=== PATIENT | female | born 1960 | race Asian ===

== ENCOUNTER 2016-10-29 10:57 | Emergency (ER) | payer BC ==
[~2016-10-29] VITALS: Ht 172.7 cm; Wt 87.5 kg
[2016-10-29 10:58] VITALS: Ht 172.7 cm; Wt 87.5 kg
[2016-10-29 12:28] LABS: BASOPHIL # 0.1 10^3/ul (0.0-0.1); BASOPHILS % 0.5 % (0.0-2.0); EOSINOPHILS % 0.2 % (0.0-7.0); HEMATOCRIT 40.4 % (37.0-47.0); HEMOGLOBIN 13.4 g/dl (12.0-16.0); LYMPHOCYTES # 2.2 10^3/ul (0.8-2.9); LYMPHOCYTES % 17.2 % (15.0-51.0); MEAN CORPUSCULAR HGB CONC 33.2 g/dl (32.0-37.0); MEAN CORPUSCULAR VOLUME 93.4 fl (82.0-101.0); MEAN PLATELET VOLUME 8.6 fl (7.4-10.4); MONOCYTE # 0.8 10^3/ul (0.3-0.9); MONOCYTES % 6.7 % (0.0-11.0); NEUTROPHIL # 9.5 10^3/ul (1.6-7.5); NEUTROPHILS % 75.4 % (39.0-77.0); PLATELET COUNT 250 10^3/UL (140-440); RED BLOOD COUNT 4.32 10^6/ul (4.20-5.40); UNCORRECTED WBC 12.6 10^3/ul (4.8-10.8); WHITE BLOOD COUNT 12.6 10^3/ul (4.8-10.8)
--- NOTE | 2016-10-29 12:29 | RADRPT ---
PROCEDURE: XR left shoulder. CLINICAL INDICATION: shoulder pain, limited range of motion TECHNIQUE: AP, Internal and external rotation views of the left shoulder were performed. COMPARISON: None. FINDINGS: There is normal osseous mineralization and alignment. No acute fracture is identified. There is a sclerotic lesion in the left humeral head which may be sales representative public utilities of a bone [place]. There are normal joints without evidence of arthritis or dislocation. The soft tissues are unremarkable. IMPRESSION: 1. No acute bony abnormality 2. Sclerotic lesion in the left humeral head. Additional imaging evaluation with a CT can be perfo rmed for further evaluation. .Faby Hugo MD, MD Date Time Electronically viewed and signed by .Faby Hugo MD, on 10/29/2016 12:28 .Julia/
[2016-10-29 12:31] LABS: CONDITION 1
[2016-10-29 12:34] LABS: ALBUMIN 4.3 g/dl (3.3-4.9); POTASSIUM 4.3 mmol/L (3.5-5.1)
[2016-10-29 12:36] LABS: ALBUMIN/GLOBULIN RATIO 1.04; BILIRUBIN,INDIRECT 0.2 mg/dl (0-1.1); BILIRUBIN,TOTAL 0.2 mg/dl (0.2-1.3); CREATININE 0.57 mg/dl (0.44-1.00); TOTAL PROTEIN 8.4 g/dl (6.1-8.1)
[2016-10-29 12:37] LABS: CALCIUM 9.4 mg/dl (8.4-10.2)
--- NOTE | 2016-10-29 12:59 | ERD ---
ER Documentation Chief Complaint Date/Time DATE: 10/29/16 TIME: 12:50 Chief Complaint LEFT SHOULDER PAIN,LIMITED RANGE OF MOTION HPI This is a 56-year-old female presenting to the emergency department for left shoulder pain and limited range of motion 3 days. Patient states she developed severe left shoulder pain with stiffening shoulder joint. Patient took Motrin, aspirin and Aleve at home without relief of symptoms. Recently diagnosed with diabetes 6 months ago but patient did not start on any medications and has been changing her diet. No swelling of extremity. No loss of sensation, numbness or tingling of left arm. Patient also reports 2 days ago she was in the bathroom brushing her teeth and suddenly felt dizzy and fell. Denies hitting her head or losing consciousness. No dizziness or syncopal episodes since. ROS All systems reviewed and are negative except as per history of present illness. Medications Home Meds Active Scripts Prednisone* (Prednisone*) 20 Mg Tab, 20 MG PO DAILY for 4 Days, TAB Prov:AURORA DAUGHERTY NP 10/29/16 Ibuprofen* (Motrin*) 600 Mg Tab, 600 MG PO Q6, #15 TAB Prov:AURORA DAUGHERTY NP 10/29/16 Allergies Allergies: Coded Allergies: No Known Allergy (Unverified , 10/29/16) PMhx/Soc Medical and Surgical Hx: pt denies Medical Hx, pt denies Surgical Hx History of Surgery: Yes (BTL) Anesthesia Reaction: No Hx Neurological Disorder: No Hx Respiratory Disorders: No Hx Cardiac Disorders: No Hx Psychiatric Problems: No Hx Miscellaneous Medical Probl: No Hx Alcohol Use: No Hx Substance Use: No Hx Tobacco Use: No Smoking Status: Never smoker Physical Exam Vitals Vital Signs Date Time Temp Pulse Resp B/P Pulse Ox O2 Delivery O2 Flow Rate FiO2 10/29/16 14:44 98.1 86 18 148/88 100 Room Air 10/29/16 10:58 98.9 97 18 165/99 100 Physical Exam Const: NAD, alert Head: Atraumatic Eyes: Normal Conjunctiva ENT: Normal External Ears, Nose and Mouth. No erythema or exudate to posterior pharynx. TMs normal bilaterally. Neck: Full range of motion..~ No meningismus. Resp: Clear to auscultation bilaterally. No wheezing, rhonchi or crackles. Cardio: Regular rate and rhythm, no murmurs Abd: Soft, non tender, non distended. Normal bowel sounds Skin: No petechiae or rashes Back: No midline or flank tenderness Ext: No cyanosis, or edema Neur: Awake and alert Psych: Normal Mood and Affect Result Diagram: 10/29/16 1012 10/29/16 1012 Results 24 hrs Laboratory Tests Test 10/29/16 10:12 10/29/16 13:25 Alanine Aminotransferase (ALT/SGPT) 32IU/L Albumin 4.3g/dl Albumin/Globulin Ratio 1.04 Alkaline Phosphatase 93IU/L Anion Gap 16 Aspartate Amino Transf (AST/SGOT) 26IU/L Basophils # 0.110^3/ul Basophils % 0.5% Blood Urea Nitrogen 14mg/dl Calcium Level 9.4mg/dl Carbon Dioxide Level 29mmol/L Chloride Level 101mmol/L Creatinine 0.57mg/dl Direct Bilirubin 0.00mg/dl Eosinophils # 0.010^3/ul Eosinophils % 0.2% Globulin 4.10g/dl Glucose Level 101mg/dl Hematocrit 40.4% Hemoglobin 13.4g/dl Indirect Bilirubin 0.2mg/dl Lymphocytes # 2.210^3/ul Lymphocytes % 17.2% Mean Corpuscular Hemoglobin 31.0pg Mean Corpuscular Hemoglobin Concent 33.2g/dl Mean Corpuscular Volume 93.4fl Mean Platelet Volume 8.6fl Monocytes # 0.810^3/ul Monocytes % 6.7% Neutrophils # 9.510^3/ul Neutrophils % 75.4% Nucleated Red Blood Cells # 0.010^3/ul Nucleated Red Blood Cells % 0.0/100WBC Platelet Count 86860^3/UL Potassium Level 4.3mmol/L Red Blood Count 4.3210^6/ul Red Cell Distribution Width 13.0% Sodium Level 142mmol/L Total Bilirubin 0.2mg/dl Total Protein 8.4g/dl White Blood Count 12.610^3/ul Bedside Urine Blood 1+ Bedside Urine Glucose (UA) Negative Bedside Urine Ketones (LAB) Negative Bedside Urine Leukocyte Esterase (L 1+ Bedside Urine Nitrite (LAB) Negative Bedside Urine Protein (LAB) Negative Bedside Urine pH (LAB) 6.0 Current Medications Medications (Trade) Dose Ordered Sig/Lester Route PRN Reason Start Time Stop Time Status Last Admin Dose Admin Ketorolac Tromethamine (Toradol) 30 mg ONCE STAT IV 10/29/16 13:00 10/29/16 13:01 DC 10/29/16 13:06 Procedures/MDM ED COURSE: The patient was stable throughout ED course. I kept the patient and/or family informed of laboratory and diagnostic imaging results throughout the ED course. Laboratory CBC shows WBC 12.6 otherwise unremarkable CMP unremarkable EKG: As interpreted by Dr. Gaston Rate/Rhythm: Normal sinus rhythm with heart rate 88 bpm QRS, ST, T-waves: No changes consistent w/ acute ischemia Impression: No evidence of ischemia or arrhythmia Imaging Patient: SAMANTHA HOBBS : 1960 Age: 56 Sex: F MR #: [id number] DOS: 10/29/16 1146 Ordering MD: AURORA DAUGHERTY NP Location: [facility] Room/Bed: PROCEDURE: XR left shoulder. CLINICAL INDICATION: shoulder pain, limited range of motion TECHNIQUE: AP, Internal and external rotation views of the left shoulder were performed. COMPARISON: None. FINDINGS: There is normal osseous mineralization and alignment. No acute fracture is identified. There is a sclerotic lesion in the left humeral head which may be career services representative of a bone [place]. There are normal joints without evidence of arthritis or dislocation. The soft tissues are unremarkable. IMPRESSION: 1. No acute bony abnormality 2. Sclerotic lesion in the left humeral head. Additional imaging evaluation with a CT can be performed for further evaluation. MDM: 56 year old female presents to ER with non-traumatic left shoulder pain and immobility x 3 days. Patient denies ever having this pain before or having arthritis. No fevers or chills. Patient's syncopal episode 2 days ago warranted further investigation and therefore EKG and labs were ordered. Labs shows slightly elevated WBC 12.6. EKG shows NSR with HR 88bpm. XR left shoulder reviewed by radiologist as no acute bony abnormality. Sclerotic lesion in the left humeral head. Patient given Toradol 30mg IV with some improvement in pain and mobility. Discussed patient with Dr. Gaston who examined patient's findings and we agree that patient is safe to discharge home and that patient can have additional imaging outside the hospital. Diagnosis is adhesive capsulitis. Low suspicion for septic arthritis, osteomyelitis, gout or acute dislocation or fracture. Patient is appropriate for outpatient management will be given prescription for ibuprofen. Instructed patient to follow-up with primary care provider in the next 2-3 days for reassessment. May need referral to orthopedic physician. Return to ED for any high fever, chest pain, difficulty breathing, shortness breath, wheezing, vomiting, diarrhea, abdominal pain or any new or worsening symptoms. Patient verbalizes understanding. All questions answered at discharge. Departure Diagnosis: Primary Impression: Adhesive capsulitis Laterality: left Qualified Code: M75.02 - Adhesive capsulitis of left shoulder Condition: Stable AURORA DAUGHERTY NP Oct 29, 2016 12:59
[2016-10-29] MEDS ORDERED: KETOROLAC 30 MG INJ IV STA (13:00)
[2016-10-29 13:24] LABS: URINE BLOOD (Dip) POC 1+ (NEGATIVE)
[2016-10-29] MEDS ORDERED: PRED20TA PO (14:36)
[2016-10-29] MEDS ORDERED: IBUP-1542 PO (14:36)
[2016-10-29 14:44] VITALS: BP 148/88; PULSE 86; RESP 18; TEMP 98.1
== END 2016-10-29 14:45 | disposition home or self-care (01) ==
LOC: FTE 10:57
DX: M75.02 Adhesive capsulitis of left shoulder (principal); R42 Dizziness and giddiness; E11.9 Type 2 diabetes mellitus without complications; W18.39XA Other fall on same level, initial encounter; Y92.002 Bathroom of unspecified non-institutional (private) residence as the place of occurrence of the external cause; Z79.82 Long term (current) use of aspirin
CPT/HCPCS: 73030; 80053; 81003; 85025; 96374; 99285; J1885